=== PATIENT | female | born 1970 | race Caucasian/White ===

== ENCOUNTER 2018-10-18 08:04 | Emergency (ER) | payer MEDICAID ==
[~2018-10-18] VITALS: Ht 167.6 cm; Wt 98.0 kg
[2018-10-18 08:11] VITALS: BP 171/84
[2018-10-18] MEDS ORDERED: ACET-2119 PO (08:24)
== END 2018-10-18 08:30 | disposition home or self-care (01) ==
LOC: ER 08:05
DX: S00.412A Abrasion of left ear, initial encounter (principal); E11.9 Type 2 diabetes mellitus without complications; Z88.5 Allergy status to narcotic agent; Z88.8 Allergy status to other drugs, medicaments and biological substances; Z79.899 Other long term (current) drug therapy; W22.8XXA Striking against or struck by other objects, initial encounter; Y93.89 Activity, other specified; Y92.89 Other specified places as the place of occurrence of the external cause; Y99.8 Other external cause status
CPT/HCPCS: 99282

== ENCOUNTER 2020-07-15 10:27 | Day surgery (SDC) | payer MEDICAID ==
[2020-07-07 16:26] LABS: BASOPHILS % (AUTO) 0.9 % (0-1); EOSINOPHILS # (AUTO) 0.1 X10'3 (0-0.9); EOSINOPHILS % (AUTO) 1.7 % (0-6); LYMPHOCYTES # (AUTO) 1.8 X10'3 (1.1-4.8); LYMPHOCYTES % (AUTO) 45.3 % (21-51); MEAN CORPUSCULAR HGB CONC 35.1 g/dL (33.0-36.5); MEAN CORPUSCULAR VOLUME 93.8 FL (78-98); MEAN PLATELET VOLUME 9.1 FL (7.4-10.4); MONOCYTES # (AUTO) 0.4 X10'3 (0-0.9); MONOCYTES % (AUTO) 9.6 % (2-12); NEUTROPHILS # (AUTO) 1.6 X10'3 (1.8-7.7); NEUTROPHILS % (AUTO) 42.5 % (42-75); PRE OP HEMATOCRIT 41.6 % (35.0-45.0); PRE OP HEMOGLOBIN 14.6 g/dL (12.0-16.0); PRE OP PLATELET COUNT 108 X10'3 (140-440); RED BLOOD COUNT 4.43 X10'6 (4.20-5.60); RED CELL DISTRIBUTION WIDTH 13.4 % (11.5-14.5)
[2020-07-07 16:40] LABS: ALBUMIN 3.6 G/DL (3.4-5.0); ALKALINE PHOSPHATASE 90 IU/L (46-116); BLOOD UREA NITROGEN 17 MG/DL (7-18); BUN/CREATININE RATIO 28.8 (6.6-38.0); CALCIUM 8.6 MG/DL (8.5-10.1); CHLORIDE 105 MMOL/L (99-107); CREATININE 0.59 MG/DL (0.40-0.90); PRE OP ALT 35 U/L (30-65); PRE OP ANION GAP 11 (8-16); PRE OP AST 36 U/L (10-37); PRE OP BILIRUB, TOTAL 0.6 MG/DL (0.0-1.0); PRE OP POTASSIUM 3.6 MMOL/L (3.4-5.1); PRE OP SODIUM 140 MMOL/L (135-145); TOTAL CARBON DIOXIDE 24.4 MMOL/L (24-32); TOTAL PROTEIN 7.2 G/DL (6.4-8.2); eGFR > 90 ML/MIN
[2020-07-07 16:43] LABS: PRE OP GLUCOSE 210 MG/DL (70-104)
[~2020-07-15] VITALS: Ht 168.3 cm; Wt 106.0 kg
[~2020-07-15 10:27] MED LIST: ALBU90AE2 INH; ARIP5TAB60 PO; CHOL100025 PO; CLON-371 PO; CLON0.2T PO; ESTR1TAB28 PO; GLIP10TA11 PO; LORA-269 PO; LORA10TA7 PO; METF-438 PO; OMEP20TA5 PO; VENL75CA61 PO; ceFAZolin 2gm in dextrose, iso 50 ML IV ONE; famotidine 20mg tablet PO ONE; ringers solution, lacted 1,000 ML IV SCH; vancomycin 1,500 MG in NS 300ml IV soln IV ONE
[2020-07-15 10:40] VITALS: BP 152/92
[2020-07-15] MEDS ORDERED: BUPIVAcaine/PF 2.5 mg/ml (0.25%) 30ml vial ONE (14:05)
[2020-07-15] MEDS ORDERED: triamcinolone acetonide 40mg/ml inj ONE (14:05)
[2020-07-15] MEDS ORDERED: BUPIVAcaine 0.5% inj/PF 60 ML ONE (14:24)
[2020-07-15] MEDS ORDERED: LIDOcaine 1% w/epiNEPHrine 1:200,000 30ml vial ONE (14:25)
[2020-07-15] MEDS ORDERED: fentaNYL/PF 50MCG/1 ML 2ML syringe ONE ×3 (14:28→15:12)
[2020-07-15] MEDS ORDERED: midazolam 2 mg/2 ml injection ONE ×2 (14:28→14:39)
[2020-07-15] MEDS ORDERED: BUPIVAcaine/PF 2.5 mg/ml (0.25%) 30ml vial IJ ONE (15:25)
[2020-07-15] MEDS ORDERED: triamcinolone acetonide 40mg/ml inj IM ONE (15:25)
[2020-07-15 15:37] VITALS: BP 134/62
[2020-07-15] MEDS ORDERED: propofol inj 40 ML IV ONE (15:37)
--- NOTE | 2020-07-15 15:37 | NUR ---
Received from OR via , accompanied by Anesthesiologist DR MENON and report given by Anesthesiolgist. AWAKENS TO VOICE. VITAL;S STABLE. DRESSING DI. WICHO PAIN.
[2020-07-15] MEDS ORDERED: morphine 2 MG/ML inj. syringe IV PRN (15:45)
[2020-07-15] MEDS ORDERED: proCHLORperazine 10 MG/2 ml inj IV PRN (15:45)
[2020-07-15] MEDS ORDERED: morphine 4 MG/ML inj SYRINge IV PRN (15:45)
[2020-07-15] MEDS ORDERED: ondansetron/PF 4mg/2ml inj IV PRN (15:45)
[2020-07-15] MEDS ORDERED: ringers solution, lacted 1,000 ML IV SCH (15:45)
[2020-07-15] MEDS ORDERED: meperidine/PF 25mg/ml syringe IV PRN ×3 (15:45)
[2020-07-15 15:47] VITALS: BP 135/69
[2020-07-15 15:57] VITALS: BP 145/63
[2020-07-15 16:07] VITALS: BP 139/68
--- NOTE | 2020-07-15 16:17 | NUR ---
AWAKE AND ORIENTED. VITALS STABLE. DRESSING DI. WICHO PAIN. HOME WITH A FRIEND AT THIS TIME.
== END 2020-07-15 16:17 | disposition home or self-care (01) ==
LOC: PAS 10:27
PROVIDERS: ATTEND Orthopaedic Surgery
DX: S83.231A Complex tear of medial meniscus, current injury, right knee, initial encounter (principal); S83.271A Complex tear of lateral meniscus, current injury, right knee, initial encounter; M94.261 Chondromalacia, right knee; G89.18 Other acute postprocedural pain; F41.9 Anxiety disorder, unspecified; E11.59 Type 2 diabetes mellitus with other circulatory complications; J45.909 Unspecified asthma, uncomplicated; K21.9 Gastro-esophageal reflux disease without esophagitis; F32.9 Major depressive disorder, single episode, unspecified; E66.01 Morbid (severe) obesity due to excess calories; Z68.39 Body mass index [BMI] 39.0-39.9, adult; M17.0 Bilateral primary osteoarthritis of knee; Z88.5 Allergy status to narcotic agent; Z88.8 Allergy status to other drugs, medicaments and biological substances; Z20.828 Contact with and (suspected) exposure to other viral communicable diseases; Z79.899 Other long term (current) drug therapy; Z79.84 Long term (current) use of oral hypoglycemic drugs; Z90.49 Acquired absence of other specified parts of digestive tract; Z90.710 Acquired absence of both cervix and uterus; Z98.890 Other specified postprocedural states; Z87.891 Personal history of nicotine dependence; X58.XXXA Exposure to other specified factors, initial encounter; Y93.89 Activity, other specified; Y92.89 Other specified places as the place of occurrence of the external cause; Y99.8 Other external cause status
CPT/HCPCS: 29873; 29879; 29880; 36415; 64450; 76937; 80053; 82948; 85025; 87635; J2250; J2704; J3010; J3301; J3370; J3490; J7040; 76942; A4215; A4618; A6250; A6449; A7000; J7120

== ENCOUNTER → 2021-01-24 | Emergency (ER) | payer MEDICAID ==
[~2021-01-24] VITALS: Ht 170.2 cm; Wt 103.0 kg
[~2021-01-24] MED LIST changes: -ceFAZolin 2gm in dextrose, iso 50 ML IV ONE; -famotidine 20mg tablet PO ONE; -ringers solution, lacted 1,000 ML IV SCH; -vancomycin 1,500 MG in NS 300ml IV soln IV ONE
[2021-01-24 13:05] VITALS: BP 166/92
== END | disposition left against medical advice (07) ==
LOC: ER 12:51
DX: E11.8 Type 2 diabetes mellitus with unspecified complications (principal); Z53.21 Procedure and treatment not carried out due to patient leaving prior to being seen by health care provider
CPT/HCPCS: 82948